=== PATIENT | male | born 1960 | race Hispanic/Latino ===

== ENCOUNTER 2020-11-29 22:22 | Observation (INO) | payer OTHER ==
[~2020-11-29] VITALS: Ht 172.7 cm; Wt 86.5 kg
[2020-11-29 22:28] VITALS: BP 150/87
[2020-11-29] MEDS ORDERED: ASPIRIN 325 MG TABLET PO ONE (22:30)
[2020-11-29 22:37] LABS: BASOPHILS % (AUTO) 0.4 % (0.0-5.0); EOSINOPHILS % (AUTO) 0.4 % (0.0-8.0); HEMATOCRIT 35.6 % (42-54); LYMPHOCYTES % (AUTO) 15.6 % (21.0-51.0); MEAN CORPUSCULAR HEMOGLOBIN 39.9 pg (27.0-33.0); MEAN CORPUSCULAR HGB CONC 35.4 g/dL (32.0-36.0); MEAN CORPUSCULAR VOLUME 112.7 fL (79-99); MONOCYTES % (AUTO) 12.7 % (3.0-13.0); NEUTROPHILS % (AUTO) 70.6 % (40.0-77.0); PLATELET COUNT (AUTO) 337 K/uL (130-400); RED BLOOD CELL COUNT(AUTO) 3.16 MIL/uL (4.50-6.20); RED CELL DISTRIBUTION WIDTH 13.4 % (11.0-15.5); WHITE BLOOD COUNT (AUTO) 6.9 K/uL (4.8-10.8)
[2020-11-29] MEDS ORDERED: HYDR500C2 PO (22:38)
[2020-11-29] MEDS ORDERED: FOLI20CA PO (22:40)
[2020-11-29] MEDS ORDERED: METF-446 PO (22:41)
[2020-11-29] MEDS ORDERED: APIX5TAB PO (22:42)
[2020-11-29] MEDS ORDERED: PANT40TA54 PO (22:43)
[2020-11-29] MEDS ORDERED: GLIP10TA9 PO (22:43)
[2020-11-29] MEDS ORDERED: NITR0.4T50 SL (22:45)
[2020-11-29] MEDS ORDERED: ATOR10 PO (22:46)
[2020-11-29 22:47] LABS: CARBON DIOXIDE 25 mmol/L (21-32); CHLORIDE 106 mmol/L (101-111); CREATININE 0.6 mg/dL (0.5-1.5); GLOMERULAR FILTR. RATE CALC 146 mL/min (>60); GLUCOSE,RANDOM 202 mg/dL (70-105); POTASSIUM 3.3 mmol/L (3.5-5.1); SODIUM SERUM 141 mmol/L (136-145); UREA NITROGEN, BLOOD 8 mg/dL (7-18)
[2020-11-29] MEDS ORDERED: CETI10TA57 PO (22:47)
[2020-11-29] MEDS ORDERED: LOSA50TA64 PO (22:47)
[2020-11-29] MEDS ORDERED: LINA145C PO (22:50)
[2020-11-29] MEDS ORDERED: ASPI-1005 PO (22:51)
[2020-11-29] MEDS ORDERED: INVOK100TB PO (22:51)
[2020-11-29] MEDS ORDERED: SULF1TAB42 PO (22:52)
[2020-11-29] MEDS ORDERED: glucose tab PO (22:57)
[2020-11-29 22:58] LABS: ALANINE AMINOTRANSFERASE 31 U/L (12-78); ALBUMIN 3.6 g/dL (3.5-5.0); ASPARTATE AMINOTRANSFERASE 16 U/L (10-37); BILIRUBIN,TOTAL 0.8 mg/dL (0.2-1.0); CREATINE KINASE, TOTAL 105 U/L (21-232); MYOGLOBIN 19 ng/mL (10-92); TOTAL PROTEIN, SERUM 7.3 g/dL (6.0-8.3); TROPONIN I < 0.04 ng/mL (0.00-0.06)
[2020-11-29] MEDS ORDERED: HYDROMORPHONE 0.5 MG SYG (0.5MG/0.5ML) IVP ONE (23:30)
[2020-11-29] MEDS ORDERED: LORAZEPAM 2 MG/ML 1 ML VIAL IVP ONE (23:30)
[2020-11-29 23:41] LABS: INR 1.04 (0.85-1.15); PROTHROMBIN TIME 11.3 SEC (9.6-11.6)
[2020-11-29 23:43] LABS: PARTIAL THROMBOPLASTIN TIME 26.8 SEC (26.3-35.5)
[2020-11-29] MEDS ORDERED: ASPIRIN 325 MG TABLET ONE (23:51)
[2020-11-30] VITALS (12 sets, daily range): BP systolic 117–147; BP diastolic 51–92
[2020-11-30] MEDS ORDERED: ONDANSETRON 4MG INJ ONE (01:20)
[2020-11-30] MEDS ORDERED: MORPHINE 4 MG SYG ONE (01:20)
[2020-11-30] MEDS ORDERED: HYDROMORPHONE 1 MG INJ IVP PRN (02:30)
[2020-11-30] MEDS ORDERED: GLUCAGON 1MG KIT 1 MG ML IM PRN (04:00)
[2020-11-30] MEDS ORDERED: POTASSIUM CHLORIDE 10% ELIXIR 20 MEQ/15 ML UDCUP PO PRN (04:00)
[2020-11-30] MEDS ORDERED: DEXTROSE 50%-WATER 50 ML DISP.SYRIN IV PRN (04:00)
[2020-11-30] MEDS ORDERED: KCL 20 MEQ ERTAB PO PRN (04:00)
[2020-11-30] MEDS ORDERED: POTASSIUM CHLORIDE 20MEQ/100ML 100 ML IV PRN (04:00)
[2020-11-30] MEDS: KETOROLAC 15MG/ML VIAL (15MG/ML) IM SCH ×4 (05:21→21:58)
[2020-11-30 05:30] LABS: BASOPHILS % (AUTO) 0.5 % (0.0-5.0); EOSINOPHILS % (AUTO) 0.5 % (0.0-8.0); HEMATOCRIT 32.9 % (42-54); LYMPHOCYTES % (AUTO) 17.3 % (21.0-51.0); MEAN CORPUSCULAR HEMOGLOBIN 41.5 pg (27.0-33.0); MEAN CORPUSCULAR HGB CONC 35.9 g/dL (32.0-36.0); MEAN CORPUSCULAR VOLUME 115.8 fL (79-99); MONOCYTES % (AUTO) 15.4 % (3.0-13.0); NEUTROPHILS % (AUTO) 65.8 % (40.0-77.0); PLATELET COUNT (AUTO) 293 K/uL (130-400); RED BLOOD CELL COUNT(AUTO) 2.84 MIL/uL (4.50-6.20); RED CELL DISTRIBUTION WIDTH 13.4 % (11.0-15.5); WHITE BLOOD COUNT (AUTO) 6.4 K/uL (4.8-10.8)
[2020-11-30 06:01] LABS: ALBUMIN 3.3 g/dL (3.5-5.0); BILIRUBIN,TOTAL 0.7 mg/dL (0.2-1.0); CREATININE 0.6 mg/dL (0.5-1.5); POTASSIUM 3.1 mmol/L (3.5-5.1); TOTAL PROTEIN, SERUM 6.6 g/dL (6.0-8.3)
[2020-11-30 06:36] LABS: ERYTHROCYTE SEDIMENTATION RATE 35 MM/HR (0-20)
[2020-11-30] MEDS: INSULIN HUMULIN R 100 UNIT/ML 3ML SQ SCH ×4 (07:30→21:00)
[2020-11-30] MEDS: LINACLOTIDE 145 MCG PO SCH (07:30)
[2020-11-30] MEDS: LOSARTAN 50 MG TABLET PO SCH (10:02)
[2020-11-30] MEDS: ASPIRIN 81MG CHEW TAB PO SCH (10:02)
[2020-11-30] MEDS: BACLOFEN 10 MG TABLET PO SCH ×3 (10:02→21:10)
[2020-11-30] MEDS: CETIRIZINE HCL 5 MG TABLET PO SCH (10:03)
[2020-11-30] MEDS: PANTOPRAZOLE 40 MG TAB DR PO SCH (10:03)
[2020-11-30] MEDS: FOLIC ACID 1 MG TABLET PO SCH (10:03)
[2020-11-30] MEDS: APIXABAN 5 MG TABLET PO SCH ×2 (10:03→21:10)
[2020-11-30] MEDS: HYDROXYUREA 500 MG CAP PO SCH ×2 (10:03→21:10)
[2020-11-30] MEDS ORDERED: DIAZEPAM 5 MG TABLET PO PRN (15:15)
[2020-11-30] MEDS: ATORVASTATIN 10 MG TABLET PO SCH (21:11)
[2020-12-01 00:30] VITALS: BP 139/82
[2020-12-01 04:16] VITALS: BP 150/81
[2020-12-01 06:12] LABS: HEMATOCRIT 34.4 % (42-54); MEAN CORPUSCULAR HEMOGLOBIN 40.9 pg (27.0-33.0); MEAN CORPUSCULAR HGB CONC 35.2 g/dL (32.0-36.0); MEAN CORPUSCULAR VOLUME 116.2 fL (79-99); RED BLOOD CELL COUNT(AUTO) 2.96 MIL/uL (4.50-6.20); RED CELL DISTRIBUTION WIDTH 13.3 % (11.0-15.5)
[2020-12-01 06:20] LABS: CREATININE 0.6 mg/dL (0.5-1.5); POTASSIUM 3.5 mmol/L (3.5-5.1)
[2020-12-01] MEDS: INSULIN HUMULIN R 100 UNIT/ML 3ML SQ SCH ×4 (06:37→19:44)
[2020-12-01] MEDS: KETOROLAC 15MG/ML VIAL (15MG/ML) IM SCH (06:42)
[2020-12-01] MEDS: LINACLOTIDE 145 MCG PO SCH (06:43)
[2020-12-01 07:30] VITALS: BP 142/85
[2020-12-01] MEDS: CETIRIZINE HCL 5 MG TABLET PO SCH (09:42)
[2020-12-01] MEDS: ASPIRIN 81MG CHEW TAB PO SCH (09:42)
[2020-12-01] MEDS: BACLOFEN 10 MG TABLET PO SCH ×3 (09:43→19:42)
[2020-12-01] MEDS: PANTOPRAZOLE 40 MG TAB DR PO SCH (09:43)
[2020-12-01] MEDS: HYDROXYUREA 500 MG CAP PO SCH ×2 (09:43→19:42)
[2020-12-01] MEDS: FOLIC ACID 1 MG TABLET PO SCH (09:43)
[2020-12-01] MEDS: APIXABAN 5 MG TABLET PO SCH ×2 (09:43→19:42)
[2020-12-01] MEDS: LOSARTAN 50 MG TABLET PO SCH (09:44)
[2020-12-01 11:00] VITALS: BP 142/86
[2020-12-01] MEDS ORDERED: MORPHINE 2 MG SYG IVP PRN (12:30)
[2020-12-01] MEDS ORDERED: 0.9%NACL 50ML IV SCH (12:30)
[2020-12-01] MEDS ORDERED: HYDROMORPHONE 1 MG INJ IVP PRN (12:30)
[2020-12-01] MEDS ORDERED: PIP/TAZ ZOSYN 3.375G 3.375 GM VIAL IVPB SCH (12:30)
[2020-12-01] MEDS ORDERED: ZOSYN 3.375GM+NS 50ML 50 ML IV SCH (13:00)
[2020-12-01] MEDS: KETOROLAC 15MG/ML VIAL (15MG/ML) IV SCH (13:22)
[2020-12-01] MEDS: DEXAMETHASONE SOD PHOSPHATE 4 MG/ML 1ML VIAL IVP SCH (13:22)
[2020-12-01 16:00] VITALS: BP 129/71
[2020-12-01] MEDS: ATORVASTATIN 10 MG TABLET PO SCH (19:42)
[2020-12-01 20:11] VITALS: BP 120/81
[2020-12-01] MEDS: NITROGLYCERIN 0.4 MG SL TAB SL PRN ×2 (20:24→20:54)
[2020-12-02 01:00] VITALS: BP 121/75
[2020-12-02 04:11] VITALS: BP 132/78
[2020-12-02 06:34] LABS: HEMATOCRIT 34.7 % (42-54); MEAN CORPUSCULAR HEMOGLOBIN 39.9 pg (27.0-33.0); MEAN CORPUSCULAR HGB CONC 34.9 g/dL (32.0-36.0); MEAN CORPUSCULAR VOLUME 114.5 fL (79-99); RED BLOOD CELL COUNT(AUTO) 3.03 MIL/uL (4.50-6.20); RED CELL DISTRIBUTION WIDTH 12.9 % (11.0-15.5); WHITE BLOOD COUNT (AUTO) 7.9 K/uL (4.8-10.8)
[2020-12-02] MEDS: INSULIN HUMULIN R 100 UNIT/ML 3ML SQ SCH ×2 (06:41→12:44)
[2020-12-02 06:54] LABS: CREATININE 0.6 mg/dL (0.5-1.5); POTASSIUM 3.6 mmol/L (3.5-5.1)
[2020-12-02 07:30] VITALS: BP 160/84
[2020-12-02] MEDS: LINACLOTIDE 145 MCG PO SCH (07:30)
[2020-12-02] MEDS: BACLOFEN 10 MG TABLET PO SCH (09:00)
[2020-12-02] MEDS: KETOROLAC 15MG/ML VIAL (15MG/ML) IV SCH (09:52)
[2020-12-02] MEDS: DEXAMETHASONE SOD PHOSPHATE 4 MG/ML 1ML VIAL IVP SCH (10:26)
[2020-12-02] MEDS: HYDROXYUREA 500 MG CAP PO SCH (10:30)
[2020-12-02] MEDS: APIXABAN 5 MG TABLET PO SCH (10:31)
[2020-12-02] MEDS: CETIRIZINE HCL 5 MG TABLET PO SCH (10:31)
[2020-12-02] MEDS: FOLIC ACID 1 MG TABLET PO SCH (10:31)
[2020-12-02] MEDS: ASPIRIN 81MG CHEW TAB PO SCH (10:31)
[2020-12-02] MEDS: PANTOPRAZOLE 40 MG TAB DR PO SCH (10:32)
[2020-12-02] MEDS: LOSARTAN 50 MG TABLET PO SCH (10:33)
[2020-12-02 11:00] VITALS: BP 138/81
== END 2020-12-02 16:00 | disposition home health service (06) ==
LOC: EDH 22:22 → EDHIP 11-30 02:15 → 3DH 12-01 00:42
PROVIDERS: ADMIT Internal Medicine; ATTEND Internal Medicine
DX: M47.812 Spondylosis without myelopathy or radiculopathy, cervical region (principal); R07.89 Other chest pain; E78.5 Hyperlipidemia, unspecified; E78.00 Pure hypercholesterolemia, unspecified; I10 Essential (primary) hypertension; I25.10 Atherosclerotic heart disease of native coronary artery without angina pectoris; E11.649 Type 2 diabetes mellitus with hypoglycemia without coma; I25.2 Old myocardial infarction; R51.9 Headache, unspecified; M43.6 Torticollis; R11.0 Nausea; F19.90 Other psychoactive substance use, unspecified, uncomplicated; Z68.29 Body mass index [BMI] 29.0-29.9, adult; Z79.01 Long term (current) use of anticoagulants; Z79.82 Long term (current) use of aspirin; Z79.899 Other long term (current) drug therapy; Z95.810 Presence of automatic (implantable) cardiac defibrillator; Z98.890 Other specified postprocedural states
CPT/HCPCS: 36415 ×4; 70450; 71045 ×2; 72125; 80048 ×2; 80053 ×2; 82550; 82948 ×9; 83874; 84484 ×5; 85025 ×2; 85027 ×2; 85610; 85651; 85730; 93005 ×3; 96372 ×3; 96374; 96375 ×2; 97039 ×3; 97116; 97161; 99285; G0378 ×60; G8978; G8979; G8980; G8981; G8982; G8983; J1100; J1170; J1815 ×4; J1885 ×6; J2060; J2270; J2405